=== PATIENT | female | born 1965 | race Caucasian/White ===

== ENCOUNTER → 2020-02-03 07:54 | Outpatient (CLI) | payer OTHER, SELFPAY ==
--- NOTE | 2020-02-03 07:59 | DI.RAD.S_ITS ---
PROCEDURE: XR CERVICAL SPINE 4V OR 5V INDICATIONS: Radiculopathy TECHNIQUE: 5 views of the cervical spine acquired. COMPARISON: None. FINDINGS: Bones: No fractures or dislocations to the T1 level. Oblique images demonstrate no bony foraminal stenoses. There is mild degenerative disc disease at C4-5 and C5-6, without subluxation. C5-6 facet osteoarthritis appears present on the oblique views to moderate degree. Soft tissues: No prevertebral soft tissue swelling. IMPRESSION: No prior trauma, no subluxation seen. Degenerative disc disease is relatively mild in this patient seen at C4-5 and C5-6, but moderate foraminal stenosis is present at C5-6 from degenerative facet osteoarthritis and osteophyte formation. Dictated by: Eddy Phillips M.D. on 02/03/2020 at 8:26 Approved by: Eddy Phillips M.D. on 02/03/2020 at 8:28
--- NOTE | 2020-02-03 07:59 | DI.RAD.S_ITS ---
PROCEDURE: XR LUMBAR SPINE MIN 4V INDICATIONS: Radiculopathy TECHNIQUE: 5 views of the lumbar spine were acquired. [place] [facility] [place]ST 2VW, 04/11/2011, 14:26. [facility], RG, MRI L-SPINE W/O CONTRAST, 05/14/2019, 17:42. FINDINGS: Bones: 5 nonrib-bearing vertebrae are present. The 11th rib is large, the 12th rib is rudimentary. There is slightly levoscoliotic bony alignment centered at L3. No vertebral body compression fractures. No suspicious bony lesions. Facet osteoarthritis is mild to L3-4 and moderately severe at L4-5 and especially L5 S1, with disc disease mild above L4-L5 and L5-S1. Soft tissues: Overlying bowel gas pattern is normal. No suspicious soft tissue calcifications. Oblique images: No pars defects. IMPRESSION: Slight convex leftward scoliosis centered at the mid lumbosacral spine, facet osteoarthritis is most prominent at L4-5 and especially L5-S1. Degenerative disc disease is quite mild above L4-5, moderate at that level, and moderately severe at L5-S1. Dictated by: Eddy Phillips M.D. on 02/03/2020 at 8:28 Approved by: Eddy Phillips M.D. on 02/03/2020 at 8:41
== END ==
PROVIDERS: PCP Family Medicine; Referring Provider Physical Medicine & Rehabilitation; Visit Provider Physical Medicine & Rehabilitation
DX: M50.121 Cervical disc disorder at C4-C5 level with radiculopathy (principal); M48.02 Spinal stenosis, cervical region; M47.22 Other spondylosis with radiculopathy, cervical region; M41.86 Other forms of scoliosis, lumbar region; M47.26 Other spondylosis with radiculopathy, lumbar region; M47.27 Other spondylosis with radiculopathy, lumbosacral region; M51.16 Intervertebral disc disorders with radiculopathy, lumbar region; M51.17 Intervertebral disc disorders with radiculopathy, lumbosacral region
CPT/HCPCS: 72050; 72110